=== PATIENT | female | born 1995 ===

== ENCOUNTER 2020-07-23 14:07 | Emergency (ER) | payer MEDICAID ==
--- NOTE | 2020-07-23 15:28 | Emergency Department Report ---
Blank Doc - Documentation Documentation: 25-year-old female that presents with vaginal bleeding and had a miscarriage 2 weeks ago. Stated worsening vaginal bleeding with positive test yesterday. This initial assessment/diagnostic orders/clinical plan/treatment(s) is/are subject to change based on patient's health status, clinical progression and re- assessment by fellow clinical providers in the ED. Further treatment and workup at subsequent clinical providers discretion. Patient/guardians urged not to elope from the ED as their condition may be serious if not clinically assessed and managed. Initial orders include: 1- Patient sent to [facility] for further evaluation and treatment 2- UA 3- labs 4- US OB
[2020-07-23 15:33] VITALS: BP 114/78
[2020-07-23 15:38] LABS: Bacteria,Urine 1+ /HPF (Negative); Bilirubin,Urine NEG (Negative); Blood,Urine NEG (Negative); Color,Urine Colorless (Yellow); Protein,Urine <15 mg/dL mg/dL (Negative); Urobilinogen,Urine < 2.0 mg/dL (<2.0); WBC,Urine < 1.0 /HPF (0.0-6.0)
[2020-07-23 16:20] LABS: Basophils # (Auto) 0.1 K/mm3 (0.0-0.1); Eosinophils # (Auto) 0.1 K/mm3 (0.0-0.4); Hematocrit 37.3 % (30.3-42.9); Hemoglobin 12.4 gm/dl (10.1-14.3); Lymphocytes # (Auto) 2.6 K/mm3 (1.2-5.4); Lymphocytes % (Auto) 26.5 % (13.4-35.0); Mean Corpuscular HGB Conc 33 % (30-34); Mean Corpuscular Volume 85 fl (79-97); Monocytes # (Auto) 0.6 K/mm3 (0.0-0.8); Monocytes % (Auto) 5.8 % (0.0-7.3); Platelet Count 275 K/mm3 (140-440); Red Blood Count 4.38 M/mm3 (3.65-5.03); Red Cell Distribution Width 14.6 % (13.2-15.2)
--- NOTE | 2020-07-23 19:48 | Ultrasound Report ---
FIRSTTRIMESTER OBSTETRIC ULTRASOUND HISTORY: Provided clinical history of miscarriage 07/03/2020 with ultrasound at another facility confir keturah all products of conception has passed. COMPARISON: None. TECHNIQUE: Routine transabdominal OB ultrasound performed. FINDINGS: Uterus: 6.1 x 3.6 x 5.3 cm. Trace endometrial fluid identified. No abnormal echogenicity or vasculari ty in the interatrial canal. Ovaries: The right ovary is not definitively visualized. The left ovary is enlarged with complex cys tic mass measuring 4.5 x 3.6 x 4.1 cm. Additional findings: None. IMPRESSION 1. No evidence of retained products of conception. 2. Complex cystic mass measuring up to 4.5 cm of the left ovary. Given lack of prior imaging ectopic not completely excluded. Recommend correlation with prior imaging if available, follow-up w ith obstetrics, serial beta hCG, and further evaluation as warranted. Signer Name: Drake Akins MD Signed: 07/23/2020 7:44 PM Workstation Name: [id number]
--- NOTE | 2020-07-23 21:49 | Emergency Department Report ---
ED Female HPI - General Chief complaint: Nausea/Vomiting/Diarrhea Stated complaint: PREG BLEEDING Time Seen by Provider: 07/23/20 15:27 Source: patient Mode of arrival: Ambulatory Limitations: No Limitations - History of Present Illness Initial comments: 25-year-old female presents to the emergency room complaining of vomiting x3 days. Patient reports that she had a miscarriage on July 03, 2020. Patient reports that she took a test after having a miscarriage and it tested negative. Patient states that she had intercourse last week and she took a test this week and it states that she is positive. Patient states that she took to test this morning and states that it was positive. Patient denies any pain no recent bleeding for the last 2 weeks. She is 1 para 0. She has no past medical history currently takes no medications on a daily basis and has no known drug allergies. Severity scale (0 -10): 0 Last Menstrual Period: 07/09/20 EDC: 04/15/21 Associated Symptoms: denies: vaginal discharge, vaginal bleeding, abdominal pain, fever/chills, dysuria, hematuria, weakness - Related Data Allergies Allergy/AdvReac Type Severity Reaction Status Date / Time No Known Allergies Allergy Verified 07/23/20 14:39 ED Review of Systems ROS: Stated complaint: PREG BLEEDING Other details as noted in HPI Comment: All other systems reviewed and negative ED Past Medical Hx - Past Medical History Previous Medical History?: No - Surgical History Past Surgical History?: No - Social History Smoking Status: Never Smoker Substance Use Type: None ED Physical Exam - General Limitations: No Limitations General appearance: alert, in no apparent distress - Head Head exam: Present: atraumatic, normocephalic - Eye Eye exam: Present: normal appearance - ENT ENT exam: Present: mucous membranes moist - Back Exam Back exam: Present: normal inspection - Neurological Exam Neurological exam: Present: alert, oriented X3 - Psychiatric Psychiatric exam: Present: normal affect, normal mood - Skin Skin exam: Present: warm, dry, intact, normal color. Absent: rash ED Course Vital Signs 07/23/20 15:31 Temperature 98.3 F Pulse Rate 85 Respiratory 18 Rate Blood Pressure 114/78 O2 Sat by Pulse 98 Oximetry ED Medical Decision Making - Lab Data Result diagrams: 07/23/20 16:05 Laboratory Tests 07/23/20 07/23/20 07/23/20 16:05 16:05 16:05 WBC 10.0 RBC 4.38 Hgb 12.4 Hct 37.3 MCV 85 MCH 28 MCHC 33 RDW 14.6 Plt Count 275 Lymph % (Auto) 26.5 [place] % (Auto) 5.8 Eos % (Auto) 1.0 Baso % (Auto) 1.0 Lymph # 2.6 [place] # 0.6 Eos # 0.1 Baso # 0.1 Seg Neutrophils % 65.7 Seg Neutrophils # 6.5 HCG, Quant 7749 H Urine Color Urine Turbidity Urine pH Ur Specific [place] Urine Protein Urine Glucose (UA) Urine Ketones Urine Blood Urine Nitrite Urine Bilirubin Urine Urobilinogen Ur Leukocyte Esterase Urine WBC (Auto) Urine RBC (Auto) U Epithel Cells (Auto) Urine Bacteria (Auto) Blood Type A POSITIVE 07/23/20 Unknown WBC RBC Hgb Hct MCV MCH MCHC RDW Plt Count Lymph % (Auto) [place] % (Auto) Eos % (Auto) Baso % (Auto) Lymph # [place] # Eos # Baso # Seg Neutrophils % Seg Neutrophils # HCG, Quant Urine Color Colorless Urine Turbidity Clear Urine pH 7.0 Ur Specific [place] 1.002 L Urine Protein <15 mg/dl Urine Glucose (UA) Neg Urine Ketones Neg Urine Blood Neg Urine Nitrite Neg Urine Bilirubin Neg Urine Urobilinogen < 2.0 Ur Leukocyte Esterase Neg Urine WBC (Auto) < 1.0 Urine RBC (Auto) 1.0 U Epithel Cells (Auto) 1.0 Urine Bacteria (Auto) 1+ Blood Type - Radiology Data Radiology results: report reviewed [facility] [address] [place] [address] Ultrasound Report Signed Patient: JATIN MCGOWAN MR#: [id number] 5 : 1995 Acct:[id number] Age/Sex: 25 / F ADM Date: 07/23/20 Loc: ED Attending Dr: Ordering Physician: JENNIFER SCALES NP Date of Service: 07/23/20 Procedure(s): US OB <= 14 weeks fetus Accession Number(s): [id number] cc: JENNIFER SCALES NP [facility]TRIME[facility] OBSTETRIC ULTRASOUND HISTORY: Provided clinical history of miscarriage 07/03/2020 with ultrasound at another facility confirming all products of conception has passed. COMPARISON: None. TECHNIQUE: Routine transabdominal OB ultrasound performed. FINDINGS: Uterus: 6.1 x 3.6 x 5.3 cm. Trace endometrial fluid identified. No abnormal echogenicity or vascularity in the interatrial canal. Ovaries: The right ovary is not definitively visualized. The left ovary is enlarged with complex cystic mass measuring 4.5 x 3.6 x 4.1 cm. Additional findings: None. IMPRESSION 1. No evidence of retained products of conception. 2. Complex cystic mass measuring up to 4.5 cm of the left ovary. Given lack of prior imaging ectopic not completely excluded. Recommend correlation with prior imaging if available, follow-up with obstetrics, serial beta hCG, and further evaluation as warranted. Signer Name: Drake Akins MD Signed: 07/23/2020 7:44 PM Workstation Name: [id number] Transcribed By: Dictated By: DRAKE AKINS III Electronically Authenticated By: DRAKE AKINS III Signed Date/Time: 07/23/201943 DD/ 37 TD/TT: - Medical Decision Making 25-year-old female presents to the emergency room complaining of vomiting x3 days. Patient reports that she had a miscarriage on July 03, 2020. Patient reports that she took a test after having a miscarriage and it tested negative. Patient states that she had intercourse last week and she took a test this week and it states that she is positive. Patient states that she took to test this morning and states that it was positive. Patient denies any pain no recent bleeding for the last 2 weeks. She is 1 para 0. She has no past medical history currently takes no medications on a daily basis and has no known drug allergies. Ultrasound shows no products of conception. Complex cyst mass measuring up to 4 cm in the left ovary. Given the lack of prior imaging ectopic not completely excluded. Recommend correlation with prior imaging if available. Follow-up with electromechanical inspector and serial hCGs with further evaluation as warranted per radiologist. I discussed the patient and she has no urinary tract infection hCG is 7756. I discussed the patient she needs to repeat hCG in 2 days she can follow-up with PLASTIC SURGERY MANAGER. Patient be referred. Critical care attestation.: If time is entered above; I have spent that time in minutes in the direct care of this critically ill patient, excluding procedure time. ED Disposition Clinical Impression: Elevated serum hCG, Left ovarian cyst Disposition: DC-01 TO HOME OR SELFCARE Is pt being admited?: No Does the pt Need Aspirin: No Condition: Stable Additional Instructions: Recommend to follow-up with PLASTIC SURGERY MANAGER for repeat hCG serum 2 to 3 days. Referrals: [facility], [Primary Care Provider] - 3-5 Days [facility] [Provider Group] - 3-5 Days [facility] [Provider Group] - 3-5 Days [facility] [Provider Group] - 3-5 Days [facility] [Provider Group] - 3-5 Days
== END 2020-07-23 22:15 | disposition home or self-care (01) ==
LOC: ED 14:07
DX: O34.81 Maternal care for other abnormalities of pelvic organs, first trimester (principal); O02.81 Inappropriate change in quantitative human chorionic gonadotropin (hCG) in early pregnancy; N83.202 Unspecified ovarian cyst, left side; Z3A.01 Less than 8 weeks gestation of pregnancy
CPT/HCPCS: 36415; 76801; 81001; 84702; 85025; 86900; 86901

== ENCOUNTER 2020-07-26 08:46 | Emergency (ER) | payer MEDICAID ==
[2020-07-26 08:55] VITALS: BP 148/99
== END 2020-07-26 12:37 | disposition left against medical advice (07) ==
LOC: ED 08:46
DX: O03.9 Complete or unspecified spontaneous abortion without complication (principal); Z53.21 Procedure and treatment not carried out due to patient leaving prior to being seen by health care provider

== ENCOUNTER 2020-07-26 20:42 | Emergency (ER) | payer MEDICAID ==
[2020-07-26 22:05] VITALS: BP 144/90
[2020-07-26 23:14] LABS: Basophils % (Auto) 0.3 % (0.0-1.8); Eosinophils # (Auto) 0.1 K/mm3 (0.0-0.4); Hematocrit 37.6 % (30.3-42.9); Hemoglobin 12.5 gm/dl (10.1-14.3); Lymphocytes # (Auto) 3.2 K/mm3 (1.2-5.4); Lymphocytes % (Auto) 31.2 % (13.4-35.0); Mean Corpuscular HGB Conc 33 % (30-34); Mean Corpuscular Volume 85 fl (79-97); Monocytes # (Auto) 0.8 K/mm3 (0.0-0.8); Monocytes % (Auto) 7.3 % (0.0-7.3); Platelet Count 280 K/mm3 (140-440); Red Blood Count 4.41 M/mm3 (3.65-5.03); Red Cell Distribution Width 14.7 % (13.2-15.2)
[2020-07-27 02:59] LABS: Bacteria,Urine 1+ /HPF (Negative); Bilirubin,Urine NEG (Negative); Blood,Urine NEG (Negative); Color,Urine Yellow (Yellow); Mucus,Urine 1+ /HPF; Protein,Urine <15 mg/dL mg/dL (Negative); Urobilinogen,Urine < 2.0 mg/dL (<2.0)
--- NOTE | 2020-07-27 03:09 | Ultrasound Report ---
EXAMINATION: Obstetrical ultrasound, 07/27/2020 CLINICAL INFORMATION: The patient has a history of previous miscarriage on 07/03/2020 at another facili ty. The provided history is pelvic pain and vaginal spotting with increased hCG. COMPARISON: Obstetrical ultrasound, 07/23/2020 FINDINGS: The uterus is normal in size measuring 7.9 x 4.1 x 5.0 cm. There is a single oval hypoechoic structure within the endometrial canal measuring 2.4 cm. No p ole or yolk sac is identified. The right adnexal region appears within normal limits. Evaluation of the left adnexal region again de monstrates a complicated cyst versus cystic mass measuring 4.2 x 3.6 cm. Doppler flow is demonstrated to both adnexal regions. No free pelvic fluid is identified. IMPRESSION: 1. Oval hypoechoic structure in the endometrial canal as described. This could potentially represent a gestational sac or an empty sac. No pole is identified. Diagnostic considerations include keeley led or failing , too early to visualize or less likely ectopic . 2. Stable appearance of complicated cyst versus cystic mass associated with the left adnexal region. Therefore, ectopic would not also be a consideration. Close clinical and laboratory follow- up is recommended. Signer Name: Cherie Bacon MD Signed: 07/27/2020 3:05 AM Workstation Name: [id number]
[2020-07-27] MEDS ORDERED: ACETAMINOPHEN 325 MG TAB PO ONE (03:25)
[2020-07-27] MEDS ORDERED: METOCLOPRAMIDE 10 MG TAB PO ONE (03:46)
--- NOTE | 2020-07-27 03:49 | Emergency Department Report ---
ED HPI - General Chief complaint: Vaginal Bleeding Stated complaint: VAGINAL BLEEDING Time Seen by Provider: 07/27/20 01:29 Source: patient Mode of arrival: Ambulatory Limitations: No Limitations - History of Present Illness Initial comments: Patient is a 25-year-old female presents emergency room with complaints of vaginal bleeding that began 2 days ago but states that it stopped yesterday. She is not currently having vaginal bleeding. She states that she has been having suprapubic abdominal pain. She states that she has associated nausea and had one episode of vomiting. She states that she began having dysuria yesterday and vaginal itching. Patient states her last menstrual cycle was in January. She states that her OB is [facility] and she has an appointment with them tomorrow. She denies any diarrhea or fever. She has not been taking anything for her abdominal pain. /P:0/A:2 (1 , 1 miscarriage) - Related Data Previous Rx's Medication Instructions Recorded Last Taken Type Acetaminophen [Tylenol] 650 mg PO Q8HR PRN #20 capsule 07/27/20 Unknown Rx Metoclopramide [Reglan] 10 mg PO Q8HR PRN #12 tab 07/27/20 Unknown Rx Miconazole Nitrate [Miconazole 7] 45 gm VG QHS #7 cream.appl 07/27/20 Unknown Rx cephALEXin [Keflex] 500 mg PO BID 7 Days #14 cap 07/27/20 Unknown Rx Allergies Allergy/AdvReac Type Severity Reaction Status Date / Time No Known Allergies Allergy Verified 07/23/20 14:39 ED Review of Systems ROS: Stated complaint: VAGINAL BLEEDING Other details as noted in HPI ED Past Medical Hx - Past Medical History Previous Medical History?: No - Surgical History Past Surgical History?: No - Social History Smoking Status: Never Smoker Substance Use Type: None - Medications Home Medications: Home Medications Medication Instructions Recorded Confirmed Last Taken Type Acetaminophen [Tylenol] 650 mg PO Q8HR PRN #20 capsule 07/27/20 Unknown Rx Metoclopramide [Reglan] 10 mg PO Q8HR PRN #12 tab 07/27/20 Unknown Rx Miconazole Nitrate [Miconazole 7] 45 gm VG QHS #7 cream.appl 07/27/20 Unknown Rx cephALEXin [Keflex] 500 mg PO BID 7 Days #14 cap 07/27/20 Unknown Rx ED Physical Exam - General Limitations: No Limitations General appearance: alert, in no apparent distress - Head Head exam: Present: atraumatic, normocephalic - Eye Eye exam: Present: normal appearance - ENT ENT exam: Present: mucous membranes moist - Respiratory Respiratory exam: Present: normal lung sounds bilaterally. Absent: respiratory distress, wheezes, rales, rhonchi, stridor, chest wall tenderness, accessory muscle use, decreased breath sounds, prolonged expiratory - Cardiovascular Cardiovascular Exam: Present: regular rate, normal rhythm, normal heart sounds. Absent: systolic murmur, diastolic murmur, rubs, gallop - GI/Abdominal GI/Abdominal exam: Present: soft, normal bowel sounds. Absent: distended, tenderness, guarding, rebound, rigid - Neurological Exam Neurological exam: Present: alert, oriented X3 - Psychiatric Psychiatric exam: Present: normal affect, normal mood - Skin Skin exam: Present: warm, dry, intact ED Course Vital Signs 07/26/20 07/27/20 21:51 04:08 Temperature 98 F Pulse Rate 89 67 Respiratory 20 15 Rate Blood Pressure 144/90 O2 Sat by Pulse 97 100 Oximetry ED Medical Decision Making - Lab Data Result diagrams: 07/26/20 22:22 Lab Results 07/26/20 07/26/20 07/26/20 Range/Units 22:22 22:22 22:22 WBC 10.3 (4.5-11.0) K/mm3 RBC 4.41 (3.65-5.03) M/mm3 Hgb 12.5 (10.1-14.3) gm/dl Hct 37.6 (30.3-42.9) % MCV 85 (79-97) fl MCH 28 (28-32) pg MCHC 33 (30-34) % RDW 14.7 (13.2-15.2) % Plt Count 280 (140-440) K/mm3 Lymph % (Auto) 31.2 (13.4-35.0) % [place] % (Auto) 7.3 (0.0-7.3) % Eos % (Auto) 1.0 (0.0-4.3) % Baso % (Auto) 0.3 (0.0-1.8) % Lymph # 3.2 (1.2-5.4) K/mm3 [place] # 0.8 (0.0-0.8) K/mm3 Eos # 0.1 (0.0-0.4) K/mm3 Baso # 0.0 (0.0-0.1) K/mm3 Seg Neutrophils % 60.2 (40.0-70.0) % Seg Neutrophils # 6.2 (1.8-7.7) K/mm3 HCG, Quant 31873 H (0-4) mIU/mL Urine Color (Yellow) Urine Turbidity (Clear) Urine pH (5.0-7.0) Ur Specific [place] (1.003-1.030) Urine Protein (Negative) mg/dL Urine Glucose (UA) (Negative) mg/dL Urine Ketones (Negative) mg/dL Urine Blood (Negative) Urine Nitrite (Negative) Urine Bilirubin (Negative) Urine Urobilinogen (<2.0) mg/dL Ur Leukocyte Esterase (Negative) Urine WBC (Auto) (0.0-6.0) /HPF Urine RBC (Auto) (0.0-6.0) /HPF U Epithel Cells (Auto) (0-13.0) /HPF Urine Bacteria (Auto) (Negative) /HPF Urine Mucus /HPF Urine Yeast (Budding) /HPF Blood Type A POSITIVE 07/27/20 Range/Units Unknown WBC (4.5-11.0) K/mm3 RBC (3.65-5.03) M/mm3 Hgb (10.1-14.3) gm/dl Hct (30.3-42.9) % MCV (79-97) fl MCH (28-32) pg MCHC (30-34) % RDW (13.2-15.2) % Plt Count (140-440) K/mm3 Lymph % (Auto) (13.4-35.0) % [place] % (Auto) (0.0-7.3) % Eos % (Auto) (0.0-4.3) % Baso % (Auto) (0.0-1.8) % Lymph # (1.2-5.4) K/mm3 [place] # (0.0-0.8) K/mm3 Eos # (0.0-0.4) K/mm3 Baso # (0.0-0.1) K/mm3 Seg Neutrophils % (40.0-70.0) % Seg Neutrophils # (1.8-7.7) K/mm3 HCG, Quant (0-4) mIU/mL Urine Color Yellow (Yellow) Urine Turbidity Cloudy (Clear) Urine pH 6.0 (5.0-7.0) Ur Specific [place] 1.023 (1.003-1.030) Urine Protein <15 mg/dl (Negative) mg/dL Urine Glucose (UA) Neg (Negative) mg/dL Urine Ketones Neg (Negative) mg/dL Urine Blood Neg (Negative) Urine Nitrite Neg (Negative) Urine Bilirubin Neg (Negative) Urine Urobilinogen < 2.0 (<2.0) mg/dL Ur Leukocyte Esterase Sm (Negative) Urine WBC (Auto) 18.0 H (0.0-6.0) /HPF Urine RBC (Auto) 31.0 (0.0-6.0) /HPF U Epithel Cells (Auto) 7.0 (0-13.0) /HPF Urine Bacteria (Auto) 1+ (Negative) /HPF Urine Mucus 1+ /HPF Urine Yeast (Budding) 2+ /HPF Blood Type - Radiology Data Radiology results: report reviewed Ultrasound Report Signed Patient: JATIN MCGOWAN MR#: [id number] 5 : 1995 Acct:[id number] Age/Sex: 25 / F ADM Date: 07/26/20 Loc: ED Attending Dr: Ordering Physician: FORTUNATO CAMPOS Date of Service: 07/27/20 Procedure(s): US OB <= 14 weeks fetus Accession Number(s): [id number] cc: FORTUNATO CAMPOS EXAMINATION: Obstetrical ultrasound, 07/27/2020 CLINICAL INFORMATION: The patient has a history of previous miscarriage on 07/03/2020 at another facility. The provided history is pelvic pain and vaginal spotting with increased hCG. COMPARISON: Obstetrical ultrasound, 07/23/2020 FINDINGS: The uterus is normal in size measuring 7.9 x 4.1 x 5.0 cm. There is a single oval hypoechoic structure within the endometrial canal measuring 2.4 cm. No pole or yolk sac is identified. The right adnexal region appears within normal limits. Evaluation of the left a dnexal region again demonstrates a complicated cyst versus cystic mass measuring 4.2 x 3.6 cm. Dop pler flow is demonstrated to both adnexal regions. No free pelvic fluid is identified. IMPRESSION: 1. Oval hypoechoic structure in the endometrial canal as described. This could potentially represent a gestational sac or an empty sac. No pole is identified. Diagnostic considerations include failed or failing , too early to visualize or less likely ectopic . 2. Stable appearance of complicated cyst versus cystic mass associated with the left adnexal region. Therefore, ectopic would not also be a consideration. Close clinical and laboratory follow-up is recommended. Signer Name: Cherie Bacon MD Signed: 07/27/2020 3:05 AM Workstation Name: [id number] Transcribed By: KEL Dictated By: Cehrie Bacon MD Electronically Authenticated By: Cherie Bacon MD Signed Date/Time: 07/27/20304 DD/ 7 TD/TT: - Medical Decision Making Patient is a 25-year-old female presents emergency room with complaints of vaginal bleeding that began 2 days ago but states that it stopped yesterday. She is not currently having vaginal bleeding. She states that she has been having suprapubic abdominal pain. She states that she has associated nausea and had one episode of vomiting. She states that she began having dysuria yesterday and vaginal itching. Patient states her last menstrual cycle was in January. She states that her OB is [facility] and she has an appointment with them tomorrow. She denies any diarrhea or fever. She has not been taking anything for her abdominal pain. /P:0/A:2 (1 , 1 miscarriage). VSS. No abdominal tenderness on exam, no guarding, no rebound, no rigidity. [place] [address]. Her previous hCG quant from 3 days ago is 7749, which means that her hCG quant is increasing. UA shows evidence of UTI and yeast. Patient is Rh+. OB US: 1. Oval hypoechoic structure in the endometrial canal as described. This could potentially represent a gestational sac or an empty sac. No pole is identified. Diagnostic considerations include failed or failing , too early to visualize or less likely ectopic . 2. Stable appearance of complicated cyst versus cystic mass associated with the left adnexal region. Therefore, ectopic would not also be a consideration. Close clinical and laboratory follow-up is recommended. Patient given Tylenol and Reglan and she was able to tolerate p.o. intake without difficulty and symptoms improved. Patient given prescription for Keflex, miconazole, Reglan, Tylenol. Advised patient Please use medication as prescribed. Please increase your water intake. Please take a vitamin [id number]. Please keep your appointment with your VOICE WRITING REPORTER tomorrow. [place] [address]. Please take your ultrasound report to your VOICE WRITING REPORTER. You need to have close OB follow-up. Return to emergency room for any new or worsening symptoms. - Differential Diagnosis Ectopic, IUP, threatened miscarriage, hemorrhagic cyst, subchorionic hemorr Critical care attestation.: If time is entered above; I have spent that time in minutes in the direct care of this critically ill patient, excluding procedure time. ED Disposition Clinical Impression: Threatened miscarriage, Yeast vaginitis Ovarian cyst Qualifiers: Laterality: left Qualified Code(s): N83.202 - Unspecified ovarian cyst, left side UTI (urinary tract infection) Qualifiers: Urinary tract infection type: acute cystitis Hematuria presence: with hematuria Qualified Code(s): N30.01 - Acute cystitis with hematuria Disposition: TO HOME OR SELFCARE Is pt being admited?: No Does the pt Need Aspirin: No Condition: Stable Instructions: Threatened Miscarriage (ED), Urinary Tract Infection in Women (ED), Vulvovaginal Candidiasis (ED) Additional Instructions: Please use medication as prescribed. Please increase your water intake. Please take a vitamin [id number]. Please keep your appointment with your VOICE WRITING REPORTER tomorrow. [place] [address]. Please take your ultrasound report to your VOICE WRITING REPORTER. You need to have close OB follow-up. Return to emergency room for any new or worsening symptoms. Prescriptions: Miconazole Nitrate [Miconazole 7] 45 gm VG QHS #7 cream.appl cephALEXin [Keflex] 500 mg PO BID 7 Days #14 cap Metoclopramide [Reglan] 10 mg PO Q8HR PRN #12 tab PRN Reason: Nausea And Vomiting Acetaminophen [Tylenol] 650 mg PO Q8HR PRN #20 capsule PRN Reason: pain Referrals: [facility]ITING [facility] [Provider Group] - 24 Hours Time of Disposition: 03:50 Print Language: SPANISH
== END 2020-07-27 04:08 | disposition home or self-care (01) ==
LOC: ED 20:42
DX: O20.0 Threatened abortion (principal); O23.591 Infection of other part of genital tract in pregnancy, first trimester; O23.41 Unspecified infection of urinary tract in pregnancy, first trimester; O34.81 Maternal care for other abnormalities of pelvic organs, first trimester; N83.202 Unspecified ovarian cyst, left side; Z3A.14 14 weeks gestation of pregnancy; Z79.899 Other long term (current) drug therapy
CPT/HCPCS: 36415; 76801; 81001; 84702; 85025; 86900; 86901; 87086

== ENCOUNTER 2020-09-14 08:10 | Emergency (ER) | payer MEDICAID ==
[2020-09-14 08:18] VITALS: BP 127/74
[2020-09-14 09:43] LABS: Bilirubin,Urine NEG (Negative); Blood,Urine NEG (Negative); Color,Urine Yellow (Yellow); Mucus,Urine 1+ /HPF; Protein,Urine <15 mg/dL mg/dL (Negative); Urobilinogen,Urine < 2.0 mg/dL (<2.0)
[2020-09-14 10:37] LABS: Hematocrit 36.4 % (30.3-42.9); Hemoglobin 12.1 gm/dl (10.1-14.3); Mean Corpuscular HGB Conc 33 % (30-34); Mean Corpuscular Volume 86 fl (79-97); Platelet Count 271 K/mm3 (140-440); Red Blood Count 4.23 M/mm3 (3.65-5.03); Red Cell Distribution Width 14.3 % (13.2-15.2)
[2020-09-14 11:07] LABS: Alanine Aminotransferase 7 units/L (7-56); Albumin 3.9 g/dL (3.9-5); Blood Urea Nitrogen 5 mg/dL (7-17); Calcium 8.9 mg/dL (8.4-10.2); Hemolysis Index 30
[2020-09-14 11:09] LABS: BUN/Creatinine Ratio 8
--- NOTE | 2020-09-14 13:02 | Ultrasound Report ---
ULTRASOUND OBSTETRIC INDICATION / CLINICAL INFORMATION: vaginal bleeding. Clinical Gestational Age (GA): 13.1 weeks.days TECHNIQUE: Transabdominal. COMPARISON: 07/27/2020 FINDINGS: GESTATIONAL SAC: Well-defined oval shape and intrauterine in location. YOLK SAC: No significant abnormality. EMBRYO/FETUS: No significant abnormality. - [place]-Rump Length = 6.9 cm = 13.1 weeks.days - Femur length = 1.2 cm = 13.3 weeks.days - Biparietal diameter = 2.0 cm = 13.2 weeks.days - Heart Rate, beats per minute (if present) = 157 ADNEXA: 3.5 cm complex hypoechoic focus at the right ovary without associated vascularity. FREE FLUID: None. ADDITIONAL FINDINGS: None. IMPRESSION: 1. Single, living intrauterine with estimated sonographic age of 13.2 weeks.days. 2. 3.5 cm complex hypoechoic focus at the right ovary. Finding not definitively visualized on the sue or examination. Recommend attention on follow-up. Signer Name: Drake Akins MD Signed: 09/14/2020 12:57 PM Workstation Name: [id number]
--- NOTE | 2020-09-14 13:25 | Emergency Department Report ---
ED General Adult HPI - General Chief complaint: Vaginal Bleeding Stated complaint: 12weeks preg bleeding Time Seen by Provider: 09/14/20 10:17 Source: patient Mode of arrival: Ambulatory Limitations: No Limitations - History of Present Illness Initial comments: 25-year-old female patient presents with complaints of vaginal bleeding during . Patient states she has had mild spotting for the past 4 days. She denies any abdominal pain, dysuria, hematuria, urinary frequency, vaginal discharge/dyspareunia, nausea vomiting/diarrhea, or fever/chills/sweats. Patient states that she is A0. She reports she is currently following w ith an [facility] in [place], however she recently moved to [place] and is now needing a referral for new [employer]ES [employer]. - Related Data Previous Rx's Medication Instructions Recorded Last Taken Type Acetaminophen [Tylenol] 650 mg PO Q8HR PRN #20 capsule 07/27/20 Unknown Rx Metoclopramide [Reglan] 10 mg PO Q8HR PRN #12 tab 07/27/20 Unknown Rx Miconazole Nitrate [Miconazole 7] 45 gm VG QHS #7 cream.appl 07/27/20 Unknown Rx cephALEXin [Keflex] 500 mg PO BID 7 Days #14 cap 07/27/20 Unknown Rx Nitrofurantoin Bibb/M-Cryst 100 mg PO Q12HR 3 Days #6 capsule 09/14/20 Unknown Rx [Macrobid CAP] Allergies Allergy/AdvReac Type Severity Reaction Status Date / Time No Known Allergies Allergy Verified 07/23/20 14:39 ED Review of Systems ROS: Stated complaint: 12weeks preg bleeding Other details as noted in HPI Constitutional: denies: chills, fever, malaise Respiratory: denies: cough, shortness of breath Cardiovascular: denies: chest pain, edema, syncope Gastrointestinal: denies: abdominal pain, nausea, vomiting, diarrhea Genitourinary: denies: urgency, dysuria, frequency, hematuria, discharge, dyspareunia Musculoskeletal: denies: back pain Neurological: denies: headache Hematological/Lymphatic: denies: easy bleeding, easy bruising ED Past Medical Hx - Past Medical History Previous Medical History?: No - Surgical History Past Surgical History?: No - Social History Smoking Status: Never Smoker - Medications Home Medications: Home Medications Medication Instructions Recorded Confirmed Last Taken Type Acetaminophen [Tylenol] 650 mg PO Q8HR PRN #20 capsule 07/27/20 Unknown Rx Metoclopramide [Reglan] 10 mg PO Q8HR PRN #12 tab 07/27/20 Unknown Rx Miconazole Nitrate [Miconazole 7] 45 gm VG QHS #7 cream.appl 07/27/20 Unknown Rx cephALEXin [Keflex] 500 mg PO BID 7 Days #14 cap 07/27/20 Unknown Rx Nitrofurantoin Bibb/M-Cryst 100 mg PO Q12HR 3 Days #6 capsule 09/14/20 Unknown Rx [Macrobid CAP] ED Physical Exam - General Limitations: No Limitations General appearance: alert, in no apparent distress, obese - Head Head exam: Present: atraumatic, normocephalic - Eye Eye exam: Present: normal appearance. Absent: scleral icterus - Neck Neck exam: Present: full ROM - Respiratory Respiratory exam: Present: normal lung sounds bilaterally. Absent: respiratory distress - Cardiovascular Cardiovascular Exam: Present: regular rate, normal rhythm. Absent: systolic murmur, diastolic murmur, rubs, gallop - GI/Abdominal GI/Abdominal exam: Present: soft, normal bowel sounds. Absent: distended, tenderness, guarding, rebound, rigid - Extremities Exam Extremities exam: Present: normal inspection - Back Exam Back exam: Present: normal inspection - Neurological Exam Neurological exam: Present: alert, oriented X3 - Psychiatric Psychiatric exam: Present: normal affect, normal mood - Skin Skin exam: Present: warm, dry, intact, normal color. Absent: rash, cyanosis, diaphoretic, ecchymosis ED Course Vital Signs 09/14/20 08:15 Temperature 98.0 F Pulse Rate 78 Respiratory 20 Rate Blood Pressure 127/74 O2 Sat by Pulse 97 Oximetry ED Medical Decision Making - Lab Data Result diagrams: 09/14/20 08:33 09/14/20 08:33 - Radiology Data Radiology results: report reviewed ULTRASOUND OBSTETRIC INDICATION / CLINICAL INFORMATION: vaginal bleeding. Clinical Gestational Age (GA): 13.1 weeks.days TECHNIQUE: Transabdominal. COMPARISON: 07/27/2020 FINDINGS: GESTATIONAL SAC: Well-defined oval shape and intrauterine in location. YOLK SAC: No significant abnormality. EMBRYO/FETUS: No significant abnormality. - [place]-Rump Length = 6.9 cm = 13.1 weeks.days - Femur length = 1.2 cm = 13.3 weeks.days - Biparietal diameter = 2.0 cm = 13.2 weeks.days - Heart Rate, beats per minute (if present) = 157 ADNEXA: 3.5 cm complex hypoechoic focus at the right ovary without associated vascularity. FREE FLUID: None. ADDITIONAL FINDINGS: None. IMPRESSION: 1. Single, living intrauterine with estimated sonographic age of 13.2 weeks.days. 2. 3.5 cm complex hypoechoic focus at the right ovary. Finding not definitively visualized on the prior examination. Recommend attention on follow-up. - Medical Decision Making 25-year-old female patient presents with complaints of vaginal bleeding during . Patient states she has had mild spotting for the past 4 days. She denies any abdominal pain, dysuria, hematuria, urinary frequency, vaginal discharge/dyspareunia, nausea vomiting/diarrhea, or fever/chills/sweats. Patient states that she is A0. She reports she is currently following with an [facility] [employer] in [place], however she recently moved to [place] and is now needing a referral for new [employer]. On exam, she is well-appearing without abdominal tenderness to palpation. CBC and CMP are within normal limits. UA shows 8 WBCs and high leukocyte esterase, however there are high number of epithelial cells also noted. Urine culture added. Patient denies any dysuria/hematuria, however given with vaginal bleeding will treat empirically for UTI with Macrobid. Patient given referral from my [facility] clinic and Dr. Luque and informed to follow-up within 2 to 3 days. She is well-appearing and stable for discharge home. Strict return precautions were discussed in detail with patient who verbalizes understanding Critical care attestation.: If time is entered above; I have spent that time in minutes in the direct care of this critically ill patient, excluding procedure time. ED Disposition Clinical Impression: Vaginal bleeding during UTI (urinary tract infection) Qualifiers: Urinary tract infection type: acute cystitis Hematuria presence: without hematuria Qualified Code(s): N30.00 - Acute cystitis without hematuria Disposition: TO HOME OR SELFCARE Is pt being admited?: No Condition: Stable Instructions: Threatened Miscarriage (ED), Urinary Tract Infection in Women (ED) Prescriptions: Nitrofurantoin Bibb/M-Cryst [Macrobid CAP] 100 mg PO Q12HR 3 Days #6 capsule Referrals: NOAH LUQUE MD [Staff Physician] - 2-3 Days [facility] [Provider Group] - 3-5 Days
== END 2020-09-14 13:49 | disposition home or self-care (01) ==
LOC: ED 08:10
DX: O46.91 Antepartum hemorrhage, unspecified, first trimester (principal); O23.41 Unspecified infection of urinary tract in pregnancy, first trimester; Z3A.12 12 weeks gestation of pregnancy; Z79.899 Other long term (current) drug therapy
CPT/HCPCS: 36415; 76801; 80053; 81001; 84702; 84703; 85027; 86900; 86901; 87086